=== PATIENT | female | born 1935 | race Caucasian/White ===

== ENCOUNTER 2019-12-01 10:50 | Emergency (ER) | payer MEDICARE ==
[~2019-12-01] VITALS: Ht 165.1 cm; Wt 69.0 kg
[2019-12-01 11:08] VITALS: BP 156/61
--- NOTE | 2019-12-01 13:50 | NUR ---
PLACED ON AIRBORNE PRECAUTIONS (OPEN SHINGLES)
[2019-12-01] MEDS ORDERED: FAMCICLOVIR 500 MG TABLET PO ONE (14:30)
--- NOTE | 2019-12-01 14:38 | NUR ---
UA SENT MEDICATED PER EMAR
[2019-12-01 14:41] LABS: CULTURE INDICATED? YES; MICROSCOPIC INDICATED
== END 2019-12-01 15:47 | disposition home or self-care (01) ==
LOC: ED 15:40
DX: B02.33 Zoster keratitis (principal); Z85.9 Personal history of malignant neoplasm, unspecified
CPT/HCPCS: 81001; 87077; 87086; 87186; 99283

== ENCOUNTER → 2020-08-22 | Outpatient (CLI) | payer MEDICARE | END | disposition home or self-care (01) | LOC: RAD 13:10 | PROVIDERS: ATTEND Nurse Practitioner Family | DX: M51.35 Other intervertebral disc degeneration, thoracolumbar region (principal); I70.0 Atherosclerosis of aorta | CPT/HCPCS: 72072; 72110; 74022 ==